=== PATIENT | female | born 1955 | race Caucasian/White ===

== ENCOUNTER 2017-01-02 09:50 | Day surgery (SDC) | payer OTHER ==
[2017-01-02] MEDS ORDERED: Midazolam 2 MG/2 ML VIAL ONE (12:11)
[2017-01-02] MEDS ORDERED: Propofol 10 mg/ml Inj (20 ML) ONE (12:11)
[2017-01-02] MEDS ORDERED: Lidocaine Hydrochloride 5 ML INJ ONE (12:15)
[2017-01-02] MEDS ORDERED: Lactated Ringer's 1,000 ML IV ONE ×2 (12:25→14:30)
[2017-01-02] MEDS ORDERED: ceFAZolin IV 1 gm in Dextrose 1 GM/50 ML BAG IVPB ONE (12:27)
[2017-01-02] MEDS ORDERED: Gentamicin 80 mg in 0.9% NS 160 MG/200 ML BAG IVPB ONE (12:28)
[2017-01-02] MEDS ORDERED: Bupivacaine HCl 0.5% PF (10 ml) Inj ONE (12:59)
[2017-01-02] MEDS ORDERED: Lidocaine 1% Inj (20ml) ONE (12:59)
[2017-01-02] MEDS ORDERED: Lidocaine 2% w Epi 1:100,000 Inj IJ ONE (13:03)
[2017-01-02] MEDS: Clindamycin 2% Vaginal Cream(40 gm) ONE ×2 (13:19→13:22)
[2017-01-02] MEDS ORDERED: ePHEDrine 50 mg/ml Inj ONE (13:35)
[2017-01-02] MEDS ORDERED: HYDROmorphone 0.5 mg/0.5 ml ISec IVP PRN (13:53)
--- NOTE | 2017-01-02 13:54 | PCM.SURG1 ---
Surgeon's Initial Post Op Note - Surgeon's Notes Surgeon: paxton Hamper Maker Machine: QUENTIN Type of Anesthesia: General LMA Anesthesia Administered By: Staff Pre-Operative Diagnosis: SI due to BN hypermobility Operative Findings: same Post-Operative Diagnosis: same Operation Performed: TVT/suprapubic Specimen/Specimens Removed: na Estimated Blood Loss: EBL {In ML}: 0 Blood Products Given: N/A Drains Used: No Drains Post-Op Condition: Good Date of Surgery/Procedure: 01/02/17 Time of Surgery/Procedure: 13:54
[2017-01-02 15:59] VITALS: RESP 18; TEMP 97.8
[2017-01-02 16:28] VITALS: BP 124/60; PULSE 89; O2SAT 96
--- NOTE | 2017-01-03 12:13 | OP ---
PROCEDURE DATE: 01/02/2017 PREOPERATIVE DIAGNOSIS: Urinary stress incontinence. 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 PROCEDURE: Urethral suspension with midurethral sling (TVT). SURGEON: Dr. Kristofer Elena Jr. FINDINGS: Bladder neck hypermobility on Valsalva, cough or sneeze with significant leakage of urine. DESCRIPTION OF PROCEDURE: Prior to the procedure, a detailed informed consent was obtained from the patient. She is aware of the risk and complications of this surgery, alternate methods of managing urinary stress incontinence and the special risk to using mesh tape. She agreed to these risks and complications and was brought into the room and a time-out was taken according to the rules and regulations of [facility]. The patient received prophylactic antibiotics and was draped and prepped in the usual manner. The weighted speculum was placed in the vaginal area and the labia were secured to the sides with 3-0 chromic suture. A Beaulieu catheter was placed in the urethra and the bladder was drained. A marking pen was used to junior the mid-urethra while palpating the bladder neck during the marking. An Allis clamp was then placed on vaginal mucosa to stretch it and the incision was made with a knife in the vaginal mucosa. The ends of the vaginal mucosa were grabbed with 2 Allis clamps and the urethra was palpated with the Beaulieu catheter in place, and blunt, sharp dissection on the lateral to the urethra were carried out until the surgeon's finger could be placed behind the pubic bone. Once this had been done, the suprapubic area was palpated. Appropriate areas for incisions were marked and the Bovie cautery was used to make two 1-inch incisions lateral to the midline. This was carried down to the fascia. The fascia was punctured with an Allis clamp and the trocars were then inserted into the incision. The left side was done first. The trocar was passed posterior to the pubic bone until it met the surgeon's finger posterior to the pubic bone and then it was passed on the surgeon's finger down into the vaginal incision. The same procedure was repeated on the opposite side. Prior to inserting the trocars, 100 mL of normal saline was injected with a spinal needle on both sides to push the bladder away from the trocars. Once the trocars were in the vagina, the Beaulieu catheter removed and the bladder was inspected with the 30 and 70-degree lens. There was no evidence of bladder perforation or urethral perforation from the trocars. The scope was passed out and the Beaulieu catheter was reinserted. The tension-free vaginal tape was then clipped on to the end of the trocars and it was pulled up through the suprapubic incision. Surgeon's finger was kept between the urethra and the tape. The plastic covers on the tape were then removed and a Madison clamp was placed on to the urethra to keep the tape from being tightened too much. The tape was then further snug up to the Allis clamp once it was felt to be at the proper level. The ends of the tape were trimmed just below the skin. This having been done, the area was irrigated copiously with antibiotic solution and the vaginal incision was closed with several 3-0 chromic sutures in a discontinuous fashion. This having been done, the skin incision was closed with nikolai. An antibiotic-coated vaginal packing was placed in the vagina and Bacitracin ointment was placed over the incision and a dry sterile dressing was placed. The patient tolerated this procedure well. She was given detailed postoperative instructions. She will return to our office tomorrow for Beaulieu catheter removal. Kristofer Elena MD
== END 2017-01-02 16:25 | disposition home or self-care (01) ==
LOC: C.SDS 09:50
PROVIDERS: ATTEND Urology
DX: N39.3 Stress incontinence (female) (male) (principal); N36.41 Hypermobility of urethra
CPT/HCPCS: 57288; J0690; J1100; J1580; J1885; J2250; J2405; J2704; J2765; J3010; J7120

== ENCOUNTER 2017-01-16 14:04 | Emergency (ER) | payer OTHER ==
[2017-01-16 14:41] VITALS: RESP 18
[2017-01-16 15:36] VITALS: BP 118/75; PULSE 97; TEMP 98.3; O2SAT 98
--- NOTE | 2017-01-16 15:56 | C.PDOC ---
History Of Present Illness 61 year old female presents to the ED c/o dark vaginal discharge STP bladder suspension surgery performed by Dr. Elena on 01/02/17. Patient report no fresh bright red blood vaginal bleeding, patient deferred pelvic exam. Otherwise, Patient denies dysuria, back pain, fever, chills, nausea, vomit, abdominal pain , CP, SOB. Time Seen by Provider: 01/16/17 15:27 Chief Complaint (Nursing): Female Genitourinary History Per: Patient History/Exam Limitations: no limitations Onset/Duration Of Symptoms: Days Current Symptoms Are (Timing): Still Present Quality Of Discomfort: Other (Vaginal discharge ) Associated Symptoms: Urinary Symptoms Alleviating Factors: None Recent travel outside of the [place]: No Additional History Per: Patient Abnormal Vaginal Bleeding: No Past Medical History Reviewed: Historical Data, Nursing Documentation, Vital Signs Vital Signs: Last Vital Signs Temp 98.3 F 01/16/17 15:35 Pulse 97 H 01/16/17 15:35 Resp 18 01/16/17 15:35 BP 118/75 01/16/17 15:35 Pulse Ox 98 01/16/17 15:56 - Medical History PMH: HTN Denies: Chronic Kidney Disease Surgical History: No Surg Hx Family History: States: Unknown Family Hx - Social History Hx Tobacco Use: No Hx Alcohol Use: Yes Hx Substance Use: No - Immunization History Hx Tetanus Toxoid Vaccination: No Hx Influenza Vaccination: No Hx Pneumococcal Vaccination: No Review Of Systems Constitutional: Negative for: Fever, Chills Cardiovascular: Negative for: Chest Pain, Palpitations Respiratory: Negative for: Cough, Shortness of Breath Gastrointestinal: Negative for: Nausea, Vomiting, Abdominal Pain Genitourinary: Positive for: Vaginal Discharge (Dark). Negative for: Dysuria, Vaginal Bleeding, Rash Musculoskeletal: Negative for: Back Pain Skin: Negative for: Rash Neurological: Negative for: Weakness, Numbness Physical Exam - Physical Exam Appears: Non-toxic, No Acute Distress Skin: Normal Color, Warm, Dry, No Rash Head: Atraumatic, Normacephalic Eye(s): bilateral: PERRL Nose: No Discharge, No Deformity Oral Mucosa: Moist, No Drooling Throat: Normal, No Erythema, No Exudate Neck: Normal ROM, Supple Chest: Symmetrical Cardiovascular: Rhythm Regular, No Murmur Respiratory: Normal Breath Sounds, No Rales, No Rhonchi, No Wheezing Gastrointestinal/Abdominal: Soft, No Tenderness, No Guarding, No Rebound Back: No CVA Tenderness Extremity: Normal ROM, No Deformity, No Swelling Neurological/Psych: Oriented x3, Normal Speech, Normal Cognition ED Course And Treatment O2 Sat by Pulse Oximetry: 98 (On RA) Pulse Ox Interpretation: Normal Reevaluation Time: 15:54 Reassessment Condition: Improved (d/w Dr. Elena- ok to f/u in office tomorrow, ok to defer pelvic exam in ED) Medical Decision Making Medical Decision Making: Impression : 61 y/o female c/o dark vaginal d/c STP bladder suspension surgery. Plan: * UA ordered prob typical post-op bleeding/oozing Best followed up in Surgeon's office tomorrow. Hemodynamicaly stable for d/c. Disposition Doctor Will See Patient In The: Office Counseled Patient/Family Regarding: Studies Performed, Diagnosis - Disposition Referrals: [facility] [Outside] [facility] [employer] [facility] [Outside] Kristofer Elena Jr., MD [Staff Provider] - Disposition: HOME/ ROUTINE Disposition Time: 15:56 Condition: GOOD Additional Instructions: Cami victoria ([facility]) a las 12 de la tarde, para hacer farhana por la tarde Forms: General Discharge Instructions, [facility] ([place]an) - Clinical Impression Clinical Impression: Vaginal bleeding - Scribe Statement The provider has reviewed the documentation as recorded by the Scribe José Landrum All medical record entries made by the Scribe were at my direction and personally dictated by me. I have reviewed the chart and agree that the record accurately reflects my personal performance of the history, physical exam, medical decision making, and the department course for this patient. I have also personally directed, reviewed, and agree with the discharge instructions and disposition.
[2017-01-16 16:04] LABS: RBC URINE 30 /hpf (0-3); URINE BACTERIA RARE (<OCC); URINE BILIRUBIN NEGATIVE (NEGATIVE); URINE BLOOD 3+ (NEGATIVE); URINE COLOR Yellow (YELLOW); URINE GLUCOSE (UA) NORMAL (Normal); URINE KETONE NEGATIVE (NEGATIVE); URINE LEUKOCYTE ESTERASE 3+ Leu/uL (Negative); URINE PROTEIN 1+ mg/dL (NEGATIVE); URINE UROBILINOGEN NORMAL mg/dL (0.2-1.0); WBC URINE 39 /hpf (0-5)
== END 2017-01-16 16:01 | disposition home or self-care (01) ==
LOC: C.ER 14:04
DX: N93.9 Abnormal uterine and vaginal bleeding, unspecified (principal); Z98.890 Other specified postprocedural states